=== PATIENT | male | born 1950 | race Caucasian/White ===

== ENCOUNTER 2020-04-14 01:35 | Inpatient (IN) ==
--- NOTE | 2020-04-14 01:53 | DR.GENAD ---
HPI Time Seen Time Seen by Provider: 04/14/20 01:52 PCP Primary Care Physician: pricila HPI Comment HPI Comment: 69 yo m w/ prev hx of copd/ tobacco abuse presents w/ productive cough/ rhinorrhea/ congestion along with subjective f/c. No SOB, n/v/d, sick e xposure or recent travel. Sx's x 1 week. Seen in ED thursday, dx'd with suspected covid 19 and copd exacerbation. Left ama. Sent home on decadron PO. Did not start taking steroids until 2 days ago. Returns tonight with worsening SOB. RR 40's in triage with pulse ox of 82% on RA. Complaint/Symptoms Chief Complaint:: PT STATED HE IS NOT FEELING WELL HE CANT BREATH, FEEL CONSTIPATED, HAS A COUGH AND ITS HARD FOR HIM TO URINATE. Self Treatment fo Chief Complaint: TAKING STEROIDS Source History Provided: Patient and Significant Other Mode of Arrival Mode of Arrival: Ambulatory Timing Onset of Chief Complaint: 04/11/20 Severity Severity: Moderate PMH PMH Past Medical History: Yes Past Medical History: COPD Past Surgical History: Yes Past Surgical History Comment: COLON CANCER POLYPS REMOVED Family History History of Family Medical Conditions: Yes Family Medical History: Cancer Social History Alcohol Use: Occasionally Do you use any recreational Drugs:: No Lives With: Family Lives Where: Home Infectious screening Have you had fever, night sweats or hemotysis?: No Have you traveled outside the country in the last 6 months?: No Isolation: Droplet ROS Review of Systems Constitutional: Chills and Fever Eyes: No Symptoms Reported ENTM: Nose Discharge and Nose Congestion Respiratoy: Productive Cough and Short of Breath; negative Hemoptysis Cardiovascular: No Symptoms Reported Gastrointestinal/Abdominal: No Symptoms Reported Genitourinary: No Symptoms Reported Neurological: No Symptoms Reported Musculoskeletal: No Symptoms Reported Integumentary: No Symptoms Reported Hematologic/Lymphatic: No Symptoms Reported Endocrine: No Symptoms Reported Psychiatric: No Symptoms Reported All Other Systems: Reviewed and Negative PE Vital Signs Vitals: Temperature 99.9 F Pulse Rate 64 Respiratory Rate 40 Blood Pressure [Left Arm] 110/78 Blood Pressure 140/70 O2 Sat by Pulse Oximetry 85 General Limitations: No Limitations General Appearance: Alert and In Distress (moderate resp distress ) Head Head Exam: Normal Inspection Eyes Eye exam: Normal Appearance ENT ENT Exam: Normal Exam External Ear Exam: Normal External Inspection TM/Canal Exam: Bilateral: Normal Nose Exam: Normal Nose Exam Mouth Exam: Normal Inspection Throat Exam: Normal Inspection Neck Neck Exam: Normal Inspection Chest Chest Inspection: Normal Inspection Respiratory Respiratory Exam: Prolonged Expiratory Phase and Respiratory Distress (mild- mod rd ); negative Accessory Muscle Use, Chest Wall Tenderness and Stridor Respiratory Exam: Bilateral: Wheezing and Bilateral: Rhonchi Cardiovascular Cardiovascular Exam: Regular Rate and Normal Rhythm Abdominal Exam Abdominal Exam: Normal Inspection, Normal Bowel Sounds and Soft Extremities Extremities Exam: Normal Inspection Back Back Exam: Normal Inspection Neurologic Neurological Exam: Alert and Oriented X3 Psychiatric Psychiatric Exam: Normal Affect and Normal Mood Skin Skin Exam: Warm, Dry, Intact and Normal Color MDM Differential Diagnosis Differential Diagnosis: copd eascerbation, CAP/ HAP, PE, covid 19, resp failure COURSE Treatment Treatment: 69 yo cm w/ hx of copd presents w/ worsening sob in setting of recent copd exacerbation. Hypoxic on arrival, RR 40's. ABG w/ hypoxemic resp failure. CXR w/ multifocal pna. ABx initiated. So2 improved w/ supplemental o2. Covid swab pending. Steroids begun. d/w hospitalist dr leigh whom agrees to admit. Education/Counseling Education/Counseling: Patient Educated On: Treatment, Diagnosis, Prognosis and Needs for Follow Up ROR Labs Reviewed Result Diagrams: 04/14/20 02:20 04/14/20 02:20 Laboratory: WBC 15.6 X10^3/uL (3.6-10.0) H 04/14/20 02:20 RBC 3.99 X10^6/uL (4.7-6.0) L 04/14/20 02:20 Hgb 12.6 g/dL (13.5-18.0) L 04/14/20 02:20 Hct 36.9 % (42.0-54.0) L 04/14/20 02:20 MCV 92.5 fL (80.0-100.0) 04/14/20 02:20 MCH 31.7 pg (27.0-34.0) 04/14/20 02:20 MCHC 34.2 g/dL (33.0-35.0) 04/14/20 02:20 RDW 14.0 % (11.6-16.5) 04/14/20 02:20 Plt Count 291 X10^3/uL (150.0-450.0) 04/14/20 02:20 MPV 7.7 fL (7.4-11.0) 04/14/20 02:20 Neut % (Auto) 85.2 % (42.0-75.0) H 04/14/20 02:20 Lymph % (Auto) 4.7 % (21.0-51.0) L 04/14/20 02:20 Terrell % (Auto) 9.7 % (0.0-13.0) 04/14/20 02:20 Eos % (Auto) 0.0 % (0.9-2.9) L 04/14/20 02:20 Baso % (Auto) 0.4 % (0.2-1.0) 04/14/20 02:20 Neut # (Auto) 13.3 x10^3/uL (2.2-4.8) H 04/14/20 02:20 Lymph # (Auto) 0.7 X10^3/uL (1.3-2.9) L 04/14/20 02:20 Terrell # (Auto) 1.5 x10^3/uL (0.3-0.8) H 04/14/20 02:20 Eos # (Auto) 0.0 x10^3/uL (0.0-0.2) 04/14/20 02:20 Baso # (Auto) 0.1 X10^3/uL (0.0-0.1) 04/14/20 02:20 Absolute Nucleated RBC 0.0 /100WBC 04/14/20 02:20 Sample Site Rrad 04/14/20 02:12 ABG pH 7.550 (7.35-7.45) H 04/14/20 02:12 ABG pCO2 30.0 mmHg (35.0-45.0) L 04/14/20 02:12 ABG pO2 67.0 mmHg (80.0-100.0) L 04/14/20 02:12 ABG HCO3 26.2 mmol/L (22-26) H 04/14/20 02:12 ABG O2 Saturation 95.0 % (90-100) 04/14/20 02:12 ABG Base Excess 4.3 mmol/L (-2.0-2.0) H 04/14/20 02:12 Ra Test Pos 04/14/20 02:12 A-a Gradient 124.0 mmHg 04/14/20 02:12 FiO2 32.0 04/14/20 02:12 Blood Gas Comments Grant abg well-mtf 04/14/20 02:12 Sodium 133 mmol/L (136-145) L 04/14/20 02:20 Corrected Sodium 133 mmol/L (136-145) L 04/14/20 02:20 Potassium 3.9 mmol/L (3.5-5.1) 04/14/20 02:20 Chloride 96 mmol/L (98-107) L 04/14/20 02:20 Carbon Dioxide 27.0 mmol/L (21-32) 04/14/20 02:20 BUN 11 mg/dL (7-18) 04/14/20 02:20 Creatinine 0.91 mg/dL (0.70-1.30) 04/14/20 02:20 Est GFR (MDRD) Af Amer > 60 (>60) 04/14/20 02:20 Est GFR (MDRD) Non-Af > 60 (>60) 04/14/20 02:20 Glucose 117 mg/dL (65-99) H 04/14/20 02:20 Lactic Acid 1.3 mmol/L (0.4-2.0) 04/14/20 02:20 Calcium 9.2 mg/dL (8.5-10.1) 04/14/20 02:20 Ferritin 838 ng/mL (26-388) H 04/14/20 02:20 Troponin I 0.00 ng/mL (0-1.5) 04/14/20 02:20 EKG Rate: 54 [place]: LAD Rhythm: NSR Block: None Hypertrophy: None ST: Nonsp Opioid Opioid Risk Tool Age (Volodymyr box if 16-45): No History of Preadolescent Sexual Abuse: No Total: 0 Total Score Risk Category: Low Risk Copyright: Theo ESPINOZA predicting aberrant behaviors Diagnosis Discharge Problem: Acute exacerbation of chronic obstructive pulmonary disease, COVID-19 Acute respiratory failure Qualifiers: Respiratory failure complication: hypoxia Qualified Code(s): J96.01 - Acute respiratory failure with hypoxia
[2020-04-14 02:19] LABS: ABG ALLEN TEST POS; ABG BASE EXCESS 4.3 mmol/L (-2.0-2.0); ABG HCO3 26.2 mmol/L (22-26)
[2020-04-14 02:27] LABS: BASOPHILS # (AUTO) 0.1 X10^3/uL (0.0-0.1); BASOPHILS % (AUTO) 0.4 % (0.2-1.0); HEMATOCRIT 36.9 % (42.0-54.0); HEMOGLOBIN 12.6 g/dL (13.5-18.0); LYMPHOCYTES # (AUTO) 0.7 X10^3/uL (1.3-2.9); LYMPHOCYTES % (AUTO) 4.7 % (21.0-51.0); MEAN CORPUSCULAR HEMOGLOBIN 31.7 pg (27.0-34.0); MEAN CORPUSCULAR HGB CONC 34.2 g/dL (33.0-35.0); MEAN CORPUSCULAR VOLUME 92.5 fL (80.0-100.0); MEAN PLATELET VOLUME 7.7 fL (7.4-11.0); MONOCYTES # (AUTO) 1.5 x10^3/uL (0.3-0.8); MONOCYTES % (AUTO) 9.7 % (0.0-13.0); NEUTROPHILS # (AUTO) 13.3 x10^3/uL (2.2-4.8); NEUTROPHILS % (AUTO) 85.2 % (42.0-75.0); PLATELET COUNT 291 X10^3/uL (150.0-450.0); RED BLOOD COUNT 3.99 X10^6/uL (4.7-6.0); WHITE BLOOD COUNT 15.6 X10^3/uL (3.6-10.0)
[2020-04-14 02:34] LABS: BLOOD UREA NITROGEN 11 mg/dL (7-18); CALCIUM 9.2 mg/dL (8.5-10.1); CHLORIDE 96 mmol/L (98-107); COR NA(FOR HYPERGLY) 133 mmol/L (136-145); CREATININE 0.91 mg/dL (0.70-1.30); SODIUM 133 mmol/L (136-145); eGFR NON BLACK RACES > 60 (>60)
[2020-04-14] MEDS ORDERED: DECADRON INJ PRESERVATIVE-FREE IVP ONE (02:40)
[2020-04-14] MEDS ORDERED: ZITHROMAX INJ 500 MG VIAL 500 MG in NS 250 ML IV 250 ML IV SCH (02:41)
[2020-04-14] MEDS ORDERED: ROCEPHIN VIAL 1 GRAM 1 G in NS 100 ML IV + SPIKE MINIBAG* 100 ML IV ONE (02:41)
[2020-04-14 02:54] LABS: LACTIC ACID 1.3 mmol/L (0.4-2.0)
[2020-04-14] MEDS ORDERED: DECADRON INJ ONE (02:55)
[2020-04-14] MEDS: NS 1000 ML 1,000 ML IV SCH (02:55)
[2020-04-14] MEDS ORDERED: ROCEPHIN VIAL 1 GRAM ONE (02:56)
[2020-04-14] MEDS ORDERED: NS 250 ML IV 250 ML IV ONE (02:56)
[2020-04-14] MEDS ORDERED: NS 100 ML IV + SPIKE MINIBAG* 100 ML IV ONE ×2 (02:56→20:48)
[2020-04-14] MEDS ORDERED: ZITHROMAX INJ 500 MG VIAL IV ONE (02:56)
[2020-04-14] MEDS ORDERED: NS 1000 ML 1,000 ML ONE (02:56)
[2020-04-14 04:00] LABS: BILIRUBIN,URINE NEGATIVE (NEGATIVE); BLOOD/HEMOGLOBIN,URINE 2+ (NEGATIVE); GLUCOSE, URINE NEGATIVE (NEGATIVE); KETONES,URINE NEGATIVE (NEGATIVE); LEUKOCYTE ESTERASE ,URINE NEGATIVE (NEGATIVE); NITRITES,URINE NEGATIVE (NEGATIVE); PROTEIN,URINE 3+ (NEGATIVE); UROBILINOGEN,URINE 1+ (NORMAL)
[2020-04-14] MEDS ORDERED: NS 1000 ML 1,000 ML IV SCH (04:00)
[2020-04-14 04:04] LABS: APPEARANCE,URINE CLEAR (CLEAR); BACTERIA,URINE TRACE /HPF (NEGATIVE); COLOR,URINE YELLOW (YELLOW); SQUAMOUS EPITHELIAL CELL,UR RARE /HPF (NEGATIVE)
[2020-04-14 04:06] LABS: ALANINE AMINOTRANSFERASE 45 Units/L (12-78); ALBUMIN 2.6 g/dL (3.4-5.0); ALKALINE PHOSPHATASE 103 Units/L (46-116); ASPARTATE AMINO TRANSFERASE 34 Units/L (15-37); COR CA(FOR HYPOALB) 10.3 mg/dL (8.5-10.1); LACTATE DEHYDROGENASE 368 Units/L (85-227); TOTAL PROTEIN 8.6 g/dL (6.4-8.2)
--- NOTE | 2020-04-14 05:15 | RAD ---
HISTORYSOBSTUDYCHEST, 1 [id number]/06/2020FINDINGSThe trachea is midline. The cardiac silhouette is unremarkable. Bilateral predominately diffuse infiltrates involving the mid and upper lung hernandez bilaterally. No pleural effusion or pneumothorax.. The bony thorax is unremarkable.IMPRESSIONBilateral mid and upper lung field infiltrates, increased from previous 04/08/2020Electronically signed by: Ronen Pryor (Apr 14, 2020 05:15:29)
[2020-04-14 06:38] VITALS: BMI 23.6
[2020-04-14] MEDS ORDERED: VITAMIN D (1.25MG) PO SCH (09:00)
[2020-04-14] MEDS ORDERED: VITAMIN A PO SCH (09:00)
[2020-04-14] MEDS: ASCORBIC ACID INJ MULTI-DOSE VIAL 1,500 MG in NS 100 ML IV 100 ML IV SCH ×3 (09:27→20:53)
[2020-04-14] MEDS: LOVENOX INJ 30 MG SYR SC SCH ×2 (09:28→20:53)
[2020-04-14] MEDS: PLAQUENIL PO SCH ×2 (09:28→20:54)
[2020-04-14] MEDS: DECADRON TAB PO SCH (09:28)
[2020-04-14] MEDS: TRICOR TAB 160 MG PO SCH (09:29)
[2020-04-14] MEDS: ZINC SULFATE PO SCH ×2 (09:32→20:54)
[2020-04-14] MEDS ORDERED: REMDESIVIR (INVESTIGATIONAL DRUG GS-5734) 200 MG in NS 250 ML IV 250 ML IV SCH (13:51)
[2020-04-14] MEDS ORDERED: TYGACIL 50 MG VIAL 100 MG in NS 100 ML IV 100 ML IV ONE (14:06)
[2020-04-14] MEDS ORDERED: TYGACIL 50 MG VIAL IV ONE ×2 (15:09→20:35)
[2020-04-14] MEDS ORDERED: NS 50 ML IV + SPIKE MINIBAG* 50 ML IV ONE (15:11)
[2020-04-14] MEDS ORDERED: TUSSIONEX PENNKINETIC SUSP ONE (20:48)
[2020-04-14] MEDS: TUSSIONEX PENNKINETIC SUSP PO PRN (20:53)
[2020-04-14] MEDS: TYGACIL 50 MG VIAL 50 MG in NS 100 ML IV 100 ML IV SCH (23:28)
[2020-04-15] MEDS ORDERED: ZITHROMAX INJ 500 MG VIAL 500 MG in D5W 250 ML IV 250 ML IV SCH (03:00)
[2020-04-15] MEDS: ASCORBIC ACID INJ MULTI-DOSE VIAL 1,500 MG in NS 100 ML IV 100 ML IV SCH ×4 (03:29→20:55)
[2020-04-15] MEDS: NS 1000 ML 1,000 ML IV SCH (03:30)
[2020-04-15 05:57] LABS: ALANINE AMINOTRANSFERASE 50 Units/L (12-78); ALBUMIN 1.8 g/dL (3.4-5.0); ALKALINE PHOSPHATASE 93 Units/L (46-116); ASPARTATE AMINO TRANSFERASE 38 Units/L (15-37); BLOOD UREA NITROGEN 19 mg/dL (7-18); CALCIUM 8.2 mg/dL (8.5-10.1); CARBON DIOXIDE 28.3 mmol/L (21-32); CHLORIDE 103 mmol/L (98-107); COR NA(FOR HYPERGLY) 137 mmol/L (136-145); CREATININE 0.67 mg/dL (0.70-1.30); SODIUM 136 mmol/L (136-145); TOTAL PROTEIN 6.4 g/dL (6.4-8.2); eGFR NON BLACK RACES > 60 (>60)
[2020-04-15 06:25] LABS: BASOPHILS # (AUTO) 0.1 X10^3/uL (0.0-0.1); BASOPHILS % (AUTO) 0.2 % (0.2-1.0); HEMATOCRIT 33.3 % (42.0-54.0); HEMOGLOBIN 11.3 g/dL (13.5-18.0); LYMPHOCYTES # (AUTO) 1.1 X10^3/uL (1.3-2.9); LYMPHOCYTES % (AUTO) 5.1 % (21.0-51.0); MEAN CORPUSCULAR HEMOGLOBIN 31.5 pg (27.0-34.0); MEAN CORPUSCULAR VOLUME 92.6 fL (80.0-100.0); MEAN PLATELET VOLUME 8.9 fL (7.4-11.0); MONOCYTES # (AUTO) 1.5 x10^3/uL (0.3-0.8); MONOCYTES % (AUTO) 6.7 % (0.0-13.0); NEUTROPHILS # (AUTO) 19.5 x10^3/uL (2.2-4.8); PLATELET COUNT 297 X10^3/uL (150.0-450.0); RED BLOOD COUNT 3.59 X10^6/uL (4.7-6.0); RED CELL DISTRIBUTION WIDTH 14.2 % (11.6-16.5); WHITE BLOOD COUNT 22.2 X10^3/uL (3.6-10.0)
[2020-04-15 06:53] LABS: BAND NEUTROPHILS % 2 % (0-10); PLATELET MORPHOLOGY COMMENT NORMAL (NORMAL)
[2020-04-15] MEDS: TUSSIONEX PENNKINETIC SUSP PO PRN (08:48)
[2020-04-15] MEDS ORDERED: REMDESIVIR (INVESTIGATIONAL DRUG GS-5734) 100 MG in NS 250 ML IV 250 ML IV SCH (09:00)
[2020-04-15] MEDS ORDERED: DECADRON TAB PO SCH (09:00)
[2020-04-15] MEDS: PLAQUENIL PO SCH ×2 (09:26→20:56)
[2020-04-15] MEDS: DECADRON TAB PO SCH (09:27)
[2020-04-15] MEDS: ZINC SULFATE PO SCH ×2 (09:27→20:56)
[2020-04-15] MEDS: LOVENOX INJ 30 MG SYR SC SCH ×2 (09:31→20:56)
[2020-04-15] MEDS: TRICOR TAB 160 MG PO SCH (09:31)
[2020-04-15] MEDS ORDERED: REMDESIVIR (INVESTIGATIONAL DRUG GS-5734) 200 MG in NS 250 ML IV 250 ML IV NR (11:00)
[2020-04-15] MEDS: TYGACIL 50 MG VIAL 50 MG in NS 100 ML IV 100 ML IV SCH (12:26)
[2020-04-15] MEDS: MAALOX or MYLANTA PO PRN (14:26)
[2020-04-16] MEDS: TYGACIL 50 MG VIAL 50 MG in NS 100 ML IV 100 ML IV SCH ×2 (00:37→14:12)
[2020-04-16] MEDS: ASCORBIC ACID INJ MULTI-DOSE VIAL 1,500 MG in NS 100 ML IV 100 ML IV SCH ×4 (03:11→20:35)
[2020-04-16] MEDS: NS 1000 ML 1,000 ML IV SCH ×2 (05:20→09:43)
[2020-04-16 06:27] LABS: BASOPHILS # (AUTO) 0.1 X10^3/uL (0.0-0.1); BASOPHILS % (AUTO) 0.2 % (0.2-1.0); EOSINOPHILS % (AUTO) 0.1 % (0.9-2.9); HEMATOCRIT 40.9 % (42.0-54.0); HEMOGLOBIN 13.5 g/dL (13.5-18.0); LYMPHOCYTES % (AUTO) 10.6 % (21.0-51.0); MEAN CORPUSCULAR HEMOGLOBIN 30.9 pg (27.0-34.0); MEAN CORPUSCULAR HGB CONC 33.1 g/dL (33.0-35.0); MEAN CORPUSCULAR VOLUME 93.2 fL (80.0-100.0); MEAN PLATELET VOLUME 8.2 fL (7.4-11.0); MONOCYTES # (AUTO) 1.4 x10^3/uL (0.3-0.8); MONOCYTES % (AUTO) 5.1 % (0.0-13.0); NEUTROPHILS # (AUTO) 23.6 x10^3/uL (2.2-4.8); PLATELET COUNT 437 X10^3/uL (150.0-450.0); RED BLOOD COUNT 4.38 X10^6/uL (4.7-6.0); RED CELL DISTRIBUTION WIDTH 14.3 % (11.6-16.5); WHITE BLOOD COUNT 28.1 X10^3/uL (3.6-10.0)
[2020-04-16 06:42] LABS: ALANINE AMINOTRANSFERASE 49 Units/L (12-78); ALBUMIN 2.2 g/dL (3.4-5.0); ALKALINE PHOSPHATASE 122 Units/L (46-116); ASPARTATE AMINO TRANSFERASE 27 Units/L (15-37); BLOOD UREA NITROGEN 19 mg/dL (7-18); CARBON DIOXIDE 31.1 mmol/L (21-32); CHLORIDE 98 mmol/L (98-107); COR CA(FOR HYPOALB) 10.4 mg/dL (8.5-10.1); CREATININE 0.78 mg/dL (0.70-1.30); SODIUM 135 mmol/L (136-145); TOTAL PROTEIN 7.8 g/dL (6.4-8.2); eGFR NON BLACK RACES > 60 (>60)
[2020-04-16 07:09] LABS: BAND NEUTROPHILS % 3 % (0-10); PLATELET MORPHOLOGY COMMENT NORMAL (NORMAL)
[2020-04-16] MEDS: VITAMIN D3 125 mcg (5,000 UNITS) PO SCH (08:49)
[2020-04-16] MEDS: ZINC SULFATE PO SCH ×2 (08:49→20:35)
[2020-04-16] MEDS: PLAQUENIL PO SCH ×2 (08:50→20:35)
[2020-04-16] MEDS: TRICOR TAB 160 MG PO SCH (08:50)
[2020-04-16] MEDS ORDERED: REMDESIVIR (INVESTIGATIONAL DRUG GS-5734) 100 MG in NS 250 ML IV 250 ML IV SCH (09:00)
[2020-04-16] MEDS: ZOSYN VIAL 3.375 GRAMS 3.375 G in NS 100 ML IV + SPIKE MINIBAG* 100 ML IV SCH ×3 (09:26→21:23)
[2020-04-16] MEDS: DALIRESP PO SCH (09:29)
[2020-04-16] MEDS: DECADRON TAB PO SCH (09:31)
[2020-04-16] MEDS: LOVENOX INJ 30 MG SYR SC SCH ×2 (09:32→20:35)
[2020-04-16] MEDS: VITAMIN A PO SCH (09:32)
[2020-04-16] MEDS ORDERED: ZOFRAN INJ 4 MG VIAL ONE (10:10)
[2020-04-16] MEDS: ZOFRAN INJ 4 MG VIAL IVP PRN (10:20)
[2020-04-16] MEDS: DUONEB 0.5 MG/3 MG (3 mL) NEB SCH ×3 (10:43→18:00)
[2020-04-16] MEDS: PULMICORT NEB TX 0.5 MG NEB SCH ×2 (10:44→21:20)
[2020-04-16] MEDS: SINGULAIR TAB 10 MG PO SCH (20:35)
[2020-04-17] MEDS: DUONEB 0.5 MG/3 MG (3 mL) NEB SCH ×4 (00:15→17:50)
[2020-04-17] MEDS: TYGACIL 50 MG VIAL 50 MG in NS 100 ML IV 100 ML IV SCH ×2 (00:54→11:41)
[2020-04-17] MEDS: ASCORBIC ACID INJ MULTI-DOSE VIAL 1,500 MG in NS 100 ML IV 100 ML IV SCH ×4 (03:25→20:27)
[2020-04-17] MEDS: NS 1000 ML 1,000 ML IV SCH (03:32)
[2020-04-17] MEDS: ZOSYN VIAL 3.375 GRAMS 3.375 G in NS 100 ML IV + SPIKE MINIBAG* 100 ML IV SCH ×3 (05:00→23:00)
[2020-04-17 06:11] LABS: BASOPHILS % (AUTO) 0.1 % (0.2-1.0); EOSINOPHILS % (AUTO) 0.2 % (0.9-2.9); HEMATOCRIT 36.8 % (42.0-54.0); HEMOGLOBIN 12.3 g/dL (13.5-18.0); LYMPHOCYTES # (AUTO) 2.1 X10^3/uL (1.3-2.9); LYMPHOCYTES % (AUTO) 9.1 % (21.0-51.0); MEAN CORPUSCULAR HEMOGLOBIN 31.1 pg (27.0-34.0); MEAN CORPUSCULAR HGB CONC 33.4 g/dL (33.0-35.0); MEAN CORPUSCULAR VOLUME 93.3 fL (80.0-100.0); MEAN PLATELET VOLUME 7.8 fL (7.4-11.0); MONOCYTES # (AUTO) 0.9 x10^3/uL (0.3-0.8); NEUTROPHILS # (AUTO) 19.6 x10^3/uL (2.2-4.8); NEUTROPHILS % (AUTO) 86.6 % (42.0-75.0); PLATELET COUNT 347 X10^3/uL (150.0-450.0); RED BLOOD COUNT 3.95 X10^6/uL (4.7-6.0); RED CELL DISTRIBUTION WIDTH 14.6 % (11.6-16.5); WHITE BLOOD COUNT 22.7 X10^3/uL (3.6-10.0)
[2020-04-17 06:43] LABS: ALANINE AMINOTRANSFERASE 32 Units/L (12-78); ALBUMIN 1.8 g/dL (3.4-5.0); ALKALINE PHOSPHATASE 108 Units/L (46-116); ASPARTATE AMINO TRANSFERASE 17 Units/L (15-37); BLOOD UREA NITROGEN 16 mg/dL (7-18); CALCIUM 8.2 mg/dL (8.5-10.1); CARBON DIOXIDE 29.4 mmol/L (21-32); CHLORIDE 99 mmol/L (98-107); CREATININE 0.78 mg/dL (0.70-1.30); SODIUM 134 mmol/L (136-145); TOTAL PROTEIN 6.6 g/dL (6.4-8.2); eGFR NON BLACK RACES > 60 (>60)
[2020-04-17 07:06] LABS: BAND NEUTROPHILS % 2 % (0-10); PLATELET MORPHOLOGY COMMENT NORMAL (NORMAL)
[2020-04-17] MEDS: DALIRESP PO SCH (09:41)
[2020-04-17] MEDS: PLAQUENIL PO SCH ×2 (09:42→20:29)
[2020-04-17] MEDS: LOVENOX INJ 30 MG SYR SC SCH ×2 (09:42→21:25)
[2020-04-17] MEDS: DECADRON TAB PO SCH (09:42)
[2020-04-17] MEDS: ZINC SULFATE PO SCH ×2 (09:43→20:29)
[2020-04-17] MEDS: VITAMIN D3 125 mcg (5,000 UNITS) PO SCH (09:43)
[2020-04-17] MEDS: VITAMIN A PO SCH (09:43)
[2020-04-17] MEDS: TRICOR TAB 160 MG PO SCH (09:43)
[2020-04-17] MEDS: PULMICORT NEB TX 0.5 MG NEB SCH ×2 (09:50→21:10)
[2020-04-17] MEDS: ZOFRAN INJ 4 MG VIAL IVP PRN (13:20)
[2020-04-17] MEDS: SINGULAIR TAB 10 MG PO SCH (20:29)
[2020-04-17] MEDS: RESTORIL CAP 30 MG PO PRN (20:58)
[2020-04-18] MEDS: TYGACIL 50 MG VIAL 50 MG in NS 100 ML IV 100 ML IV SCH ×2 (01:00→11:50)
[2020-04-18] MEDS: ASCORBIC ACID INJ MULTI-DOSE VIAL 1,500 MG in NS 100 ML IV 100 ML IV SCH ×4 (03:55→20:40)
[2020-04-18] MEDS: NS 1000 ML 1,000 ML IV SCH (05:47)
[2020-04-18] MEDS: ZOSYN VIAL 3.375 GRAMS 3.375 G in NS 100 ML IV + SPIKE MINIBAG* 100 ML IV SCH ×3 (06:04→22:00)
[2020-04-18] MEDS: DUONEB 0.5 MG/3 MG (3 mL) NEB SCH ×5 (06:18→21:23)
[2020-04-18] MEDS: LOVENOX INJ 30 MG SYR SC SCH ×2 (08:35→20:41)
[2020-04-18] MEDS: VITAMIN D3 125 mcg (5,000 UNITS) PO SCH (08:36)
[2020-04-18] MEDS: DECADRON TAB PO SCH (08:36)
[2020-04-18] MEDS: DALIRESP PO SCH (08:36)
[2020-04-18] MEDS: ZINC SULFATE PO SCH ×2 (08:36→20:42)
[2020-04-18] MEDS: PLAQUENIL PO SCH ×2 (08:37→20:41)
[2020-04-18] MEDS: TRICOR TAB 160 MG PO SCH (08:37)
[2020-04-18] MEDS: VITAMIN A PO SCH (08:37)
[2020-04-18] MEDS: ZOFRAN INJ 4 MG VIAL IVP PRN (08:43)
[2020-04-18] MEDS: PULMICORT NEB TX 0.5 MG NEB SCH ×2 (09:40→21:23)
[2020-04-18] MEDS: SINGULAIR TAB 10 MG PO SCH (20:42)
[2020-04-18] MEDS: RESTORIL CAP 30 MG PO PRN (20:42)
[2020-04-18] MEDS: MAALOX or MYLANTA PO PRN (20:43)
[2020-04-19] MEDS ORDERED: NORCO 5/325 MG TAB ONE (01:14)
[2020-04-19] MEDS ORDERED: NORCO 5/325 MG TAB PO PRN (01:16)
[2020-04-19] MEDS: TYGACIL 50 MG VIAL 50 MG in NS 100 ML IV 100 ML IV SCH ×2 (01:18→12:05)
[2020-04-19] MEDS: ASCORBIC ACID INJ MULTI-DOSE VIAL 1,500 MG in NS 100 ML IV 100 ML IV SCH ×4 (03:50→20:29)
[2020-04-19] MEDS: NS 1000 ML 1,000 ML IV SCH (04:20)
[2020-04-19] MEDS: DUONEB 0.5 MG/3 MG (3 mL) NEB SCH ×4 (05:20→18:03)
[2020-04-19] MEDS: ZOSYN VIAL 3.375 GRAMS 3.375 G in NS 100 ML IV + SPIKE MINIBAG* 100 ML IV SCH ×3 (05:26→22:36)
[2020-04-19 06:09] LABS: BLOOD UREA NITROGEN 20 mg/dL (7-18); CARBON DIOXIDE 29.4 mmol/L (21-32); CHLORIDE 98 mmol/L (98-107); CREATININE 0.89 mg/dL (0.70-1.30); SODIUM 133 mmol/L (136-145); eGFR NON BLACK RACES > 60 (>60)
[2020-04-19 06:10] LABS: ALANINE AMINOTRANSFERASE 26 Units/L (12-78); ALKALINE PHOSPHATASE 125 Units/L (46-116); ASPARTATE AMINO TRANSFERASE 17 Units/L (15-37); CALCIUM 9.2 mg/dL (8.5-10.1); COR CA(FOR HYPOALB) 10.8 mg/dL (8.5-10.1); TOTAL PROTEIN 7.3 g/dL (6.4-8.2)
--- NOTE | 2020-04-19 06:14 | RAD ---
HISTORYFollow-up COVID-19STUDYChest AP [id number]/12/2020FINDINGSThe heart is within normal limits in size. The mini are normal. The lungs are slightly less well inflated than on the prior examination. Bilateral mid and upper lobe infiltrates ground-glass and alveolar are unchanged from the prior examination. No pleural effusions are identified. Bony thorax is unremarkable.IMPRESSIONNo change bilateral ground-glass and alveolar infiltratesLungs slightly less well inflated than on the prior examinationElectronically signed by: CONRADO ZHENG (Apr 19, 2020 06:13:26)
[2020-04-19 06:15] LABS: BASOPHILS % (AUTO) 0.1 % (0.2-1.0); EOSINOPHILS # (AUTO) 0.1 x10^3/uL (0.0-0.2); EOSINOPHILS % (AUTO) 0.3 % (0.9-2.9); HEMATOCRIT 39.1 % (42.0-54.0); HEMOGLOBIN 13.2 g/dL (13.5-18.0); LYMPHOCYTES # (AUTO) 2.5 X10^3/uL (1.3-2.9); LYMPHOCYTES % (AUTO) 9.5 % (21.0-51.0); MEAN CORPUSCULAR HEMOGLOBIN 31.4 pg (27.0-34.0); MEAN CORPUSCULAR HGB CONC 33.7 g/dL (33.0-35.0); MEAN CORPUSCULAR VOLUME 93.1 fL (80.0-100.0); MEAN PLATELET VOLUME 7.7 fL (7.4-11.0); MONOCYTES % (AUTO) 3.7 % (0.0-13.0); NEUTROPHILS # (AUTO) 22.5 x10^3/uL (2.2-4.8); NEUTROPHILS % (AUTO) 86.4 % (42.0-75.0); PLATELET COUNT 482 X10^3/uL (150.0-450.0); RED CELL DISTRIBUTION WIDTH 14.4 % (11.6-16.5)
[2020-04-19 07:00] LABS: BAND NEUTROPHILS % 4 % (0-10)
[2020-04-19 07:01] LABS: PLATELET MORPHOLOGY COMMENT NORMAL (NORMAL)
[2020-04-19] MEDS: DALIRESP PO SCH (08:48)
[2020-04-19] MEDS: VITAMIN D3 125 mcg (5,000 UNITS) PO SCH (08:49)
[2020-04-19] MEDS: ZINC SULFATE PO SCH ×2 (08:50→20:30)
[2020-04-19] MEDS: VITAMIN A PO SCH (08:50)
[2020-04-19] MEDS: LOVENOX INJ 30 MG SYR SC SCH (08:51)
[2020-04-19] MEDS: ZOFRAN INJ 4 MG VIAL IVP PRN (08:58)
[2020-04-19] MEDS ORDERED: TORADOL 15 MG VIAL IVP PRN ×2 (09:30→09:31)
[2020-04-19] MEDS: PULMICORT NEB TX 0.5 MG NEB SCH ×2 (09:30→21:15)
[2020-04-19 10:35] LABS: CKMB % 6.5 % (<4); CREATINE KINASE 17 Units/L (39-308); CREATINE KINASE MB 1.1 ng/mL (0-4.0); TROPONIN I < 0.02 ng/mL (0-1.5)
[2020-04-19] MEDS ORDERED: PHENERGAN INJ 25 MG IM ONE ×2 (13:50→13:59)
[2020-04-19] MEDS ORDERED: PHENERGAN TAB 25 MG PO PRN (14:24)
[2020-04-19 17:38] LABS: CREATINE KINASE 13 Units/L (39-308); CREATINE KINASE MB 1.1 ng/mL (0-4.0); TROPONIN I < 0.02 ng/mL (0-1.5)
[2020-04-19] MEDS: SINGULAIR TAB 10 MG PO SCH (20:29)
[2020-04-19] MEDS ORDERED: TUSSIONEX PENNKINETIC SUSP PO SCH (21:00)
[2020-04-20] MEDS: DUONEB 0.5 MG/3 MG (3 mL) NEB SCH ×2 (00:27→06:19)
[2020-04-20] MEDS: TYGACIL 50 MG VIAL 50 MG in NS 100 ML IV 100 ML IV SCH (01:00)
[2020-04-20] MEDS: ASCORBIC ACID INJ MULTI-DOSE VIAL 1,500 MG in NS 100 ML IV 100 ML IV SCH ×2 (03:38→08:53)
[2020-04-20] MEDS: NS 1000 ML 1,000 ML IV SCH (05:09)
[2020-04-20 06:15] LABS: ALANINE AMINOTRANSFERASE 19 Units/L (12-78); ALBUMIN 1.7 g/dL (3.4-5.0); ALKALINE PHOSPHATASE 115 Units/L (46-116); ASPARTATE AMINO TRANSFERASE 16 Units/L (15-37); BLOOD UREA NITROGEN 21 mg/dL (7-18); CALCIUM 8.5 mg/dL (8.5-10.1); CARBON DIOXIDE 26.5 mmol/L (21-32); CHLORIDE 101 mmol/L (98-107); COR CA(FOR HYPOALB) 10.3 mg/dL (8.5-10.1); CREATININE 0.77 mg/dL (0.70-1.30); SODIUM 134 mmol/L (136-145); TOTAL PROTEIN 6.4 g/dL (6.4-8.2); eGFR NON BLACK RACES > 60 (>60)
[2020-04-20 06:16] LABS: BASOPHILS % (AUTO) 0.1 % (0.2-1.0); EOSINOPHILS # (AUTO) 0.2 x10^3/uL (0.0-0.2); HEMATOCRIT 35.7 % (42.0-54.0); HEMOGLOBIN 11.9 g/dL (13.5-18.0); LYMPHOCYTES # (AUTO) 2.4 X10^3/uL (1.3-2.9); LYMPHOCYTES % (AUTO) 14.3 % (21.0-51.0); MEAN CORPUSCULAR HEMOGLOBIN 31.1 pg (27.0-34.0); MEAN CORPUSCULAR HGB CONC 33.4 g/dL (33.0-35.0); MEAN CORPUSCULAR VOLUME 93.1 fL (80.0-100.0); MEAN PLATELET VOLUME 7.3 fL (7.4-11.0); MONOCYTES # (AUTO) 0.8 x10^3/uL (0.3-0.8); MONOCYTES % (AUTO) 4.7 % (0.0-13.0); NEUTROPHILS # (AUTO) 13.5 x10^3/uL (2.2-4.8); NEUTROPHILS % (AUTO) 79.9 % (42.0-75.0); PLATELET COUNT 427 X10^3/uL (150.0-450.0); RED BLOOD COUNT 3.84 X10^6/uL (4.7-6.0); RED CELL DISTRIBUTION WIDTH 14.4 % (11.6-16.5); WHITE BLOOD COUNT 16.8 X10^3/uL (3.6-10.0)
[2020-04-20] MEDS: ZOSYN VIAL 3.375 GRAMS 3.375 G in NS 100 ML IV + SPIKE MINIBAG* 100 ML IV SCH (06:20)
[2020-04-20 08:52] VITALS: BP 99/70
[2020-04-20] MEDS: LOVENOX INJ 30 MG SYR SC SCH (08:53)
[2020-04-20] MEDS: VITAMIN A PO SCH (08:58)
[2020-04-20] MEDS: ZINC SULFATE PO SCH (08:59)
[2020-04-20] MEDS: PULMICORT NEB TX 0.5 MG NEB SCH (08:59)
[2020-04-20] MEDS: VITAMIN D3 125 mcg (5,000 UNITS) PO SCH (08:59)
== END 2020-04-20 11:30 | disposition home or self-care (01) | DRG 190 ==
LOC: ER 01:37 → ICU 03:33 → MED/SURG 04-15 16:39
PROVIDERS: ADMIT Obstetrics & Gynecology Obstetrics; ATTEND Obstetrics & Gynecology Obstetrics
DX: J44.1 Chronic obstructive pulmonary disease with (acute) exacerbation; R07.89 Other chest pain; Z20.828 Contact with and (suspected) exposure to other viral communicable diseases; Z72.0 Tobacco use; J96.90 Respiratory failure, unspecified, unspecified whether with hypoxia or hypercapnia; Z85.048 Personal history of other malignant neoplasm of rectum, rectosigmoid junction, and anus; Z98.0 Intestinal bypass and anastomosis status; R11.10 Vomiting, unspecified